=== PATIENT | female | born 1960 ===

== ENCOUNTER 2017-02-13 12:58 | Emergency (ER) | payer SELFPAY ==
[2017-02-13 13:09] VITALS: TEMP 98.1; O2SAT 100; BMI 26.1
--- NOTE | 2017-02-13 13:40 | C.PDOC ---
History Of Present Illness The patient, a 56 y/o female, presents to the ED for evaluation of vision change and frontal headache which began around 2 months ago. Patient describes her pain as dull and constant in nature. She reports "seeing spots" and feeling dizzy, but states this may be caused by her visual problems. Patient recently arrived from [facility] around 1 month ago. She denies fever, chills, neck pain, injury/trauma to eye. Time Seen by Provider: 02/13/17 13:22 Chief Complaint (Nursing): Dizziness/Lightheaded History Per: Patient History/Exam Limitations: no limitations Onset/Duration Of Symptoms: Other (around 2 months ) Current Symptoms Are (Timing): Still Present Additional History Per: Patient Past Medical History Reviewed: Historical Data, Nursing Documentation, Vital Signs Vital Signs: Last Vital Signs Temp 98.1 F 02/13/17 13:08 Pulse 70 02/13/17 13:08 Resp 18 02/13/17 13:08 BP 145/83 02/13/17 13:08 Pulse Ox 100 02/13/17 13:48 - Medical History PMH: No Chronic Diseases Surgical History: No Surg Hx Family History: States: Unknown Family Hx - Social History Hx Alcohol Use: No Hx Substance Use: No Review Of Systems Except As Marked, All Systems Reviewed And Found Negative. Constitutional: Negative for: Fever, Chills Eyes: Positive for: Vision Change Musculoskeletal: Negative for: Neck Pain Neurological: Positive for: Headache, Dizziness Physical Exam - Physical Exam Appears: Non-toxic, No Acute Distress Skin: Normal Color, Warm, Dry Head: Atraumatic, Normacephalic, No Tenderness Eye(s): bilateral: PERRL, EOMI, right: Other (+cataract ), left: Normal Inspection Ear(s): Bilateral: Normal Oral Mucosa: Moist Neck: Normal ROM, Supple Chest: Symmetrical, No Deformity, No Tenderness Cardiovascular: Rhythm Regular, No Murmur Respiratory: Normal Breath Sounds, No Rales, No Rhonchi, No Wheezing Back: Normal Inspection, No Vertebral Tenderness, No Paraspinal Tenderness Extremity: Normal ROM, Capillary Refill (less than 2 seconds ) Neurological/Psych: Oriented x3, Normal Speech, Normal Cognition Gait: Steady ED Course And Treatment - Laboratory Results Result Diagrams: 02/13/17 13:39 02/13/17 13:39 Lab Interpretation: No Acute Changes ECG: Interpreted By Md ECG Rhythm: Sinus Rhythm ECG Interpretation: Normal O2 Sat by Pulse Oximetry: 100 (on RA) Pulse Ox Interpretation: Normal - CT Scan/US Head Other Rad Studies (CT/US): Read By Radiologist, Radiology Report Reviewed CT/US Interpretation: Accession No. : [id number]. Patient Name / ID : DOM OLIVER / [id number]. Exam Date : 02/13/2017 14:00:55 ( Approved ) . Study Comment : Sex / Age : F / 56Y. Creator : Jennifer Wilson. Dictator : Jennifer Wilson. Sales Service Coordinator : Metal Cutter : Jennifer Wilson. Approver2 : Report Date : 02/13/2017 15:03:35. My Comment : . PROCEDURE: CT HEAD WITHOUT CONTRAST. HISTORY: R/O Bleed. COMPARISON: None available. TECHNIQUE: Axial computed tomography images were obtained through the head/ brain without intravenous contrast. Radiation dose: Total exam DLP = 759.9 mGy -cm. This CT exam was performed using one or more of the following dose reduction techniques: Automated exposure control, adjustment of the mA and/or kV according to patient size, and/or use of iterative reconstruction technique. FINDINGS: HEMORRHAGE: No intracranial hemorrhage. BRAIN: No mass effect or edema. No atrophy or chronic microvascular ischemic changes. VENTRICLES: Unremarkable. No hydrocephalus. CALVARIUM: Unremarkable. PARANASAL SINUSES: Unremarkable as visualized. No significant inflammatory changes. MASTOID AIR CELLS: Unremarkable as visualized. No inflammatory changes. OTHER FINDINGS: None. IMPRESSION: No evidence of acute intracranial hemorrhage intracranial collection mass effect or midline shift. Progress Note: labs, CT Head, and EKG ordered and reviewed. Reevaluation Time: 15:16 Reassessment Condition: Unchanged (Patient remains comfortable in ED.) Disposition Counseled Patient/Family Regarding: Studies Performed, Diagnosis, Need For Followup - Disposition Referrals: at [facility] [Outside] Disposition: HOME/ ROUTINE Disposition Time: 15:17 Condition: STABLE Additional Instructions: Take Tylenol or Advil for headache as needed. Instructions: Cataracts (ED) Print Language: SLOVAK - Clinical Impression Clinical Impression: Headache around the eyes, Cataract - Scribe Statement The provider has reviewed the documentation as recorded by the Scribe (Rina Welsh) Provider Attestation: All medical record entries made by the Scribe were at my direction and personally dictated by me. I have reviewed the chart and agree that the record accurately reflects my personal performance of the history, physical exam, medical decision making, and the department course for this patient. I have also personally directed, reviewed, and agree with the discharge instructions and disposition.
[2017-02-13 13:42] LABS: BASO % 0.7 % (0.0-2.0); EOS # 0.2 K/uL (0.0-0.7); EOS % 2.4 % (0.0-4.0); HEMATOCRIT 35.9 % (34.0-47.0); LYMPH # 3.2 K/uL (1.0-4.3); LYMPH % 47.6 % (20.0-40.0); MEAN CELL VOLUME 91.7 fL (81.0-99.0); MEAN CORPUSCULAR HGB CONC 33.8 g/dL (33.0-37.0); MONO # 0.4 K/uL (0.0-0.8); MONO % 5.4 % (0.0-10.0); NRBC % 0.1 % (0.0-2.0); RED CELL DISTRIBUTION WIDTH 12.8 % (11.5-14.5); WHITE BLOOD COUNT 6.7 K/uL (4.8-10.8)
[2017-02-13 13:52] LABS: CHLORIDE 99 mmol/L (98-107)
[2017-02-13 13:53] LABS: SODIUM 135 mmol/L (132-148)
[2017-02-13 13:55] LABS: ALB/GLOB RATIO 1.3 (1.0-2.1); AST/SGOT 27 U/L (14-36); BILIRUBIN,TOTAL 0.6 mg/dL (0.2-1.3); BLOOD UREA NITROGEN 21 mg/dL (7-17); CARBON DIOXIDE 25 mmol/L (22-30); GFR AFRICAN-AMERICAN > 60; TOTAL PROTEIN 7.2 g/dL (6.3-8.3)
[2017-02-13 13:56] LABS: ALKALINE PHOSPHATASE 64 U/L (38-126); ALT/SGPT 30 U/L (9-52); CALCIUM 8.5 mg/dl (8.6-10.4); GLUCOSE,RANDOM 97 mg/dL (65-105)
--- NOTE | 2017-02-13 15:05 | CT ---
PROCEDURE: CT HEAD WITHOUT CONTRAST. HISTORY: R/O Bleed COMPARISON: None available. TECHNIQUE: Axial computed tomography images were obtained through the head/brain without intravenous contrast. Radiation dose: Total exam DLP = 759.9 mGy-cm. This CT exam was performed using one or more of the following dose reduction techniques: Automated exposure control, adjustment of the mA and/or kV according to patient size, and/or use of iterative reconstruction technique. FINDINGS: HEMORRHAGE: No intracranial hemorrhage. BRAIN: No mass effect or edema. No atrophy or chronic microvascular ischemic changes. VENTRICLES: Unremarkable. No hydrocephalus. CALVARIUM: Unremarkable. PARANASAL SINUSES: Unremarkable as visualized. No significant inflammatory changes. MASTOID AIR CELLS: Unremarkable as visualized. No inflammatory changes. OTHER FINDINGS: None. IMPRESSION: No evidence of acute intracranial hemorrhage intracranial collection mass effect or midline shift.
[2017-02-13 15:41] VITALS: BP 134/50; PULSE 74; RESP 20
--- NOTE | 2017-02-14 16:46 | CARD ---
APPROVED REPORT EKG Measurement Heart [id number] <Conclusion> Normal sinus rhythm Normal ECG
== END 2017-02-13 15:41 | disposition home or self-care (01) ==
LOC: C.ER 12:58
DX: R51 Headache (principal); H26.9 Unspecified cataract